=== PATIENT | male | born 1975 | race Caucasian/White ===

== ENCOUNTER 2019-03-01 20:18 | Inpatient (IN) | payer OTHER ==
[2019-03-01 23:39] VITALS: BMI 21.4
--- NOTE | 2019-03-02 00:38 | HP ---
CIWA Score Nausea/Vomitin-Mild Nausea/No Vomiting Muscle Tremors: 4-Moderate,w/Arms Extend Anxiety: 4-Mod. Anxious/Guarded Agitation: 4-Moderately Restless Paroxysmal Sweats: No Perspiration Orientation: 0-Oriented Tacttile Disturbances: 0-None Auditory Disturbances: 0-None Visual Disturbances: 0-None Headache: 0-None Present CIWA-Ar Total Score: 13 - Admission Criteria OASAS Guidelines: Admission for Medically Managed Detox: Requires at least one of the followin. CIWA greater than 12 2. Seizures within the past 24 hours 3. Delirium tremens within the past 24 hours 4. Hallucinations within the past 24 hours 5. Acute intervention needed for co occurring medical disorder 6. Acute intervention needed for co occurring psychiatric disorder 7. Severe withdrawal that cannot be handled at a lower level of care (continued vomiting, continued diarrhea, abnormal vital signs) requiring intravenous medication and/or fluids 8. Patient presents the following: CIWA greater than 12 Admission Criteria Met: Admission criteria met Admission ROS [facility] Chief Complaint: C/O WITHDRAWAL. SEEKING DETOX. Allergies/Adverse Reactions: Allergies Allergy/AdvReac Type Severity Reaction Status Date / Time No Known Allergies Allergy Unverified 06/26/14 11:12 History of Present Illness: 43 Y.O. MALE WITH HX/O ALCOHOLISM AND HEROIN DEPENDENCE HERE FOR DETOX. HE WAS DC FROM [facility] AND REFERRED HERE AFTER SPENDING 69 DAYS THERE. WHILE THERE CLIENT REPORTS DRINKING LIQUOR APPROX 1 PINT A DAY. HE REPORTS HE HAS NOT HAD HEROIN IN OVER A WEEK. PRESENTS WITH A CIWA OF 13 WITH C/O OF WITHDRAWAL SX'S. HIS LAST DRINK WAS TODAY AFTER BEING RELEASED. DENIES HX/O SZ + BLACKOUTS, DENIES DRUG OVERDOSE. HOMELESS, UNEMPLOYED, COURT MANDATE Exam Limitations: No Limitations - Ebola screening Have you traveled outside of the country in the last 21 days: No (N) Have you had contact with anyone from an Ebola affected area: No Do you have a fever: No - Review of Systems Constitutional: Chills, Loss of Appetite, Malaise, Night Sweats, Changes in sleep EENT: reports: No Symptoms Reported Respiratory: reports: No Symptoms reported Cardiac: reports: No Symptoms Reported GI: reports: Constipated (CHRONIC), Nausea, Poor Appetite, Poor Fluid Intake : reports: No Symptoms Reported Musculoskeletal: reports: Back Pain Integumentary: reports: No Symptoms Reported Neuro: reports: Tingling (SPINE) Endocrine: reports: No Symptoms Reported Hematology: reports: No Symptoms Reported Psychiatric: reports: Orientated x3, Agitated (IRRITABLE), Anxious, Depressed ( DENIES SI) Other Systems: Reviewed and Negative Patient History - Patient Medical History Hx Anemia: No Hx Asthma: No Hx Chronic Obstructive Pulmonary Disease (COPD): No Hx Cancer: No Hx Cardiac Disorders: No Hx Congestive Heart Failure: No Hx Hypertension: No Hx Hypercholesterolemia: No Hx Pacemaker: No HX Cerebrovascular Accident: No Hx Seizures: No Hx Dementia: No Hx Diabetes: No Hx Gastrointestinal Disorders: Yes (GERD, CHRONS) Hx Liver Disease: No Hx Genitourinary Disorders: No Hx Sexually Transmitted Disorders: No Hx Renal Disease (ESRD): No Hx Thyroid Disease: No Hx Human Immunodeficiency Virus (HIV): No Hx Hepatitis C: No Hx Depression: No Hx Suicide Attempt: No Hx Bipolar Disorder: No Hx Schizophrenia: No Other Medical History: DENIES - Patient Surgical History Past Surgical History: Yes Hx Abdominal Surgery: Yes (COLOSTOMY SINCE REVERSED) Other Surgical History: FX SKULL Anesthesia Reaction: No - PPD History Previous Implant?: Yes Documented Results: Negative w/o proof Implanted On Prior [facility] Admission?: No PPD to be Administered?: Yes - Smoking Cessation Smoking history: Former smoker (LAST USE 20 DAYS AGO) Have you smoked in the past 12 months: Yes Aproximately how many cigarettes per day: 4 Cigars Per Day: 0 Hx Chewing Tobacco Use: No Initiated information on smoking cessation: Yes 'Breaking Loose' booklet given: 03/02/19 - Substance & Tx. History Hx Alcohol Use: Yes Hx Substance Use: Yes Substance Use Type: Alcohol, Cocaine, Heroin, Marijuana, Tranquilizers Hx Substance Use Treatment: Yes ([facility]) - Substances abused Heroin Substance route: Inhalation Frequency: Daily Amount used: 8 to bags Age of first use: 32 Date of last use: 02/20/19 Cocaine Substance route: Inhalation Frequency: 1-2 times per week Amount used: 20 dollars Age of first use: 39 Date of last use: 02/26/19 Alcohol Substance route: Oral Frequency: Daily Amount used: 1 pint Age of first use: 14 Date of last use: 03/01/19 Alprazolam (Xanax) Substance route: Oral Frequency: 1-2 times per week Amount used: 12 MG Age of first use: 42 Date of last use: 02/27/19 Family Disease History - Family Disease History Family History: Denies Admission Physical Exam [facility] - Vital Signs Vital Signs: Vital Signs - 24 hr 03/01/19 23:27 Temperature 97.9 F Pulse Rate 100 H Respiratory 18 Rate Blood Pressure 98/65 - Physical General Appearance: Yes: Moderate Distress, Alcohol on Breath, Tremorous (felt) , Irritable HEENTM: Yes: EOMI, Normocephalic, SHANNEN, Pharynx Normal Respiratory: Yes: Chest Non-Tender, Lungs Clear, Normal Breath Sounds, No Respiratory Distress, No Accessory Muscle Use Neck: Yes: No masses,lesions,Nodules, Supple, Trachea in good position Breast: Yes: Breast Exam Deferred Cardiology: Yes: Regular Rhythm, Regular Rate, S1, S2 Abdominal: Yes: Non Tender, Soft, Increased Bowel Sounds, Surgical Scar Genitourinary: Yes: Within Normal Limits Back: Yes: Normal Inspection Musculoskeletal: Yes: full range of Motion, Gait Steady Extremities: Yes: Normal Capillary Refill, Normal Range of Motion, Non-Tender, Tremors (felt) Neurological: Yes: Fully Oriented, Alert, Motor Strength 5/5, Depressed Affect ( denies si) Integumentary: Yes: Dry, Warm Lymphatic: Yes: Within Normal Limits - Diagnostic (1) Alcohol dependence with uncomplicated withdrawal Current Visit: Yes Status: Acute (2) Cocaine dependence, uncomplicated Current Visit: Yes Status: Acute (3) Sedative, hypnotic or anxiolytic dependence with withdrawal, uncomplicated Current Visit: Yes Status: Acute (4) Cannabis dependence, uncomplicated Current Visit: Yes Status: Acute (5) Substance induced mood disorder Current Visit: Yes Status: Suspected (6) Homeless Current Visit: Yes Status: Suspected (7) GERD (gastroesophageal reflux disease) Current Visit: Yes Status: Chronic Qualifiers: Esophagitis presence: esophagitis presence not specified Qualified Code(s) : K21.9 - Gastro-esophageal reflux disease without esophagitis (8) Crohn disease Current Visit: Yes Status: Chronic (9) Nicotine dependence Current Visit: Yes Status: Chronic Cleared for Admission [facility] - Detox or Rehab [facility] Level of Care: Medically Managed Detox Regimen/Protocol: Librium Claeared for Rehab Admission: No Urine Drug Screen - Control Is test valid?: Yes - Results Drug screen NEGATIVE: No Urine drug screen results: UMESH-Cocaine, BZO-Benzodiazepines Inpatient Rehab Admission - Rehab Decision to Admit Inpatient rehab admission?: No
[2019-03-02] MEDS ORDERED: MAGNESIUM HYDROX 2400MG/30ML ORAL SUSPENSION 30 ML CUP PO PRN (00:47)
[2019-03-02] MEDS ORDERED: NICOTINE POLACRILEX 2 MG GUM BUC PRN (00:47)
[2019-03-02] MEDS ORDERED: P-EPHED 60MG/TRIPROLIDI 2.5MG TABLET PO PRN (00:47)
[2019-03-02] MEDS ORDERED: hydrOXYzine PAMOATE 25 MG CAPSULE (FP) PO PRN (00:47)
[2019-03-02] MEDS ORDERED: BISMUTH SUBSALICYLATE 524 MG/30 ML UD PO PRN (00:47)
[2019-03-02] MEDS ORDERED: MELATONIN 5 MG TABLETS PO PRN (00:47)
[2019-03-02] MEDS ORDERED: ONDANSETRON *ODT* 4 MG TABLET SL PRN (00:47)
[2019-03-02] MEDS ORDERED: MAGNESIUM CITRATE 300 ML BOTTLE PO PRN (00:47)
[2019-03-02] MEDS ORDERED: DICYCLOMINE HCL 10 MG CAPSULE PO PRN (00:47)
[2019-03-02] MEDS ORDERED: MENTHOL/PHENOL 1 EACH UD MM PRN (00:47)
[2019-03-02] MEDS ORDERED: guaiFENesin 200 MG/10 ML 10 ML UNIT-DOSE CUPS PO PRN (00:47)
[2019-03-02] MEDS ORDERED: chlordiazePOXIDE HCL 10 MG CAPSULE PO PRN (00:47)
[2019-03-02] MEDS ORDERED: METHOCARBAMOL 500 MG TABLET PO PRN (00:47)
[2019-03-02] MEDS ORDERED: IBUPROFEN 400 MG TABLET (FP) PO PRN (00:47)
[2019-03-02] MEDS ORDERED: MAG HYDROX/AL HYDROX/SIMETH 30 ML UNIT-DOSE CUP PO PRN (00:47)
[2019-03-02] MEDS ORDERED: ACETAMINOPHEN 325 MG TABLET (FP) PO PRN ×2 (00:47)
[2019-03-02] MEDS: chlordiazePOXIDE HCL 25 MG CAPSULE PO SCH ×3 (05:26→21:46)
--- NOTE | 2019-03-02 08:04 | EKG ---
Test Reason : Blood Pressure : / mmHG Vent. Rate : 084 BPM Atrial Rate : 084 BPM P-R Int : 142 ms QRS Dur : 094 ms QT Int : 382 ms P-R-T Axes : 061 071 053 degrees QTc Int : 451 ms NORMAL SINUS RHYTHM NORMAL ECG NO PREVIOUS ECGS AVAILABLE Confirmed by PALLAVI ESPINOZA, NORA ([id number]) on 03/02/2019 8:04:27 AM Referred By: Darwin Soto Confirmed By:NORA OLIVO MD
[2019-03-02] MEDS: PRENATAL VITAMINS W/ FOLIC ACID TABLET (FP) PO SCH (10:04)
[2019-03-02 10:05] LABS: HEMATOCRIT 36.6 % (35.4-49); HEMOGLOBIN 12.5 GM/dL (11.7-16.9); MCH 25.3 pg (25.7-33.7); MCHC 34.2 g/dl (32.0-35.9); MEAN PLT VOLUME 6.7 fl (7.5-11.1); PLATELET COUNT 499 K/MM3 (134-434); RBC 4.94 M/mm3 (4.00-5.60); WHITE BLOOD COUNT 8.6 K/mm3 (4.0-10.0)
[2019-03-02 10:07] LABS: ALBUMIN 2.5 g/dl (3.4-5.0); BILIRUBIN,TOTAL 0.2 mg/dL (0.2-1); BLOOD UREA NITROGEN 11.6 mg/dL (7-18); CALCIUM 8.4 mg/dL (8.5-10.1); CREATININE 0.9 mg/dL (0.55-1.3); POTASSIUM 4.8 mmol/L (3.5-5.1); TOT PROT 6.9 g/dl (6.4-8.2)
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
--- NOTE | 2019-03-02 11:40 | PN ---
S CIWA - CIWA Score Nausea/Vomitin-Mild Nausea/No Vomiting Muscle Tremors: 3 Anxiety: 3 Agitation: 2 Paroxysmal Sweats: 3 Orientation: 0-Oriented Tacttile Disturbances: 0-None Auditory Disturbances: 0-None Visual Disturbances: 0-None Headache: 0-None Present CIWA-Ar Total Score: 12 S Progress Note (SOAP) Subjective: low back pain sweats chills nausea Objective: 03/02/19 11:39 Vital Signs Temperature 98.1 F 03/02/19 10:00 Pulse Rate 88 03/02/19 10:00 Respiratory Rate 18 03/02/19 10:00 Blood Pressure 115/62 03/02/19 10:00 O2 Sat by Pulse Oximetry (%) Laboratory Tests 03/02/19 03/02/19 07:00 07:00 WBC 8.6 RBC 4.94 Hgb 12.5 Hct 36.6 MCV 74.0 L MCH 25.3 L MCHC 34.2 RDW 17.0 H Plt Count 499 H MPV 6.7 L Sodium 143 Potassium 4.8 Chloride 110 H Carbon Dioxide 28 Anion Gap 5 L BUN 11.6 Creatinine 0.9 Est GFR (CKD-EPI)AfAm 119.97 Est GFR (CKD-EPI)NonAf 103.51 Random Glucose 93 Calcium 8.4 L Total Bilirubin 0.2 AST 15 ALT 22 Alkaline Phosphatase 98 Total Protein 6.9 Albumin 2.5 L labs noted will repeat cbc aaox3 ambulating no acute distress Assessment: 03/02/19 11:39 withdrawal sx Plan: continue detox increase fluids lidocaine patch ordered motrin prn zofran prn
[2019-03-02] MEDS: LIDOCAINE 5% TOPICAL PATCH TP SCH (14:11)
[2019-03-02 20:49] LABS: PH,URINE 6.5 (5.0-8.0); URINE APPEARANCE CLEAR; URINE BILIRUBIN NEGATIVE (NEGATIVE); URINE COLOR YELLOW; URINE GLUCOSE (UA) NEGATIVE (NEGATIVE); URINE KETONE NEGATIVE (NEGATIVE); URINE LEUK ESTERASE NEGATIVE (NEGATIVE); URINE NITRITE NEGATIVE (NEGATIVE); URINE PROTEIN NEGATIVE (NEGATIVE); URINE UROBILINOGEN 0.2 mg/dL (0.2-1.0)
[2019-03-02] MEDS: MELATONIN 5 MG TABLETS PO PRN (21:47)
[2019-03-02] MEDS: LIDOCAINE PATCH REMOVAL MC SCH (21:48)
[2019-03-02] MEDS: THIAMINE HCL 100 MG TABLET (FP) PO SCH (21:50)
[2019-03-03] MEDS: chlordiazePOXIDE 5 MG CAPSULE PO SCH ×3 (06:21→21:54)
--- NOTE | 2019-03-03 10:35 | PN ---
S CIWA - CIWA Score Nausea/Vomitin-Mild Nausea/No Vomiting Muscle Tremors: 2 Anxiety: 2 Agitation: 2 Paroxysmal Sweats: 1-Minimal Palms Moist Orientation: 0-Oriented Tacttile Disturbances: 0-None Auditory Disturbances: 0-None Visual Disturbances: 0-None Headache: 0-None Present CIWA-Ar Total Score: 8 BHS Progress Note (SOAP) Subjective: nausea anxiety Objective: 03/03/19 10:34 Vital Signs Temperature 97.3 F L 03/03/19 09:23 Pulse Rate 94 H 03/03/19 09:23 Respiratory Rate 18 03/03/19 09:23 Blood Pressure 117/59 L 03/03/19 09:23 O2 Sat by Pulse Oximetry (%) Laboratory Tests 03/02/19 03/02/19 03/02/19 07:00 07:00 07:00 WBC 8.6 RBC 4.94 Hgb 12.5 Hct 36.6 MCV 74.0 L MCH 25.3 L MCHC 34.2 RDW 17.0 H Plt Count 499 H MPV 6.7 L Sodium 143 Potassium 4.8 Chloride 110 H Carbon Dioxide 28 Anion Gap 5 L BUN 11.6 Creatinine 0.9 Est GFR (CKD-EPI)AfAm 119.97 Est GFR (CKD-EPI)NonAf 103.51 Random Glucose 93 Calcium 8.4 L Total Bilirubin 0.2 AST 15 ALT 22 Alkaline Phosphatase 98 Total Protein 6.9 Albumin 2.5 L Urine Color Urine Appearance Urine pH Ur Specific [place] Urine Protein Urine Glucose (UA) Urine Ketones Urine Blood Urine Nitrite Urine Bilirubin Urine Urobilinogen Ur Leukocyte Esterase RPR Titer Nonreactive 03/02/19 11:40 WBC RBC Hgb Hct MCV MCH MCHC RDW Plt Count MPV Sodium Potassium Chloride Carbon Dioxide Anion Gap BUN Creatinine Est GFR (CKD-EPI)AfAm Est GFR (CKD-EPI)NonAf Random Glucose Calcium Total Bilirubin AST ALT Alkaline Phosphatase Total Protein Albumin Urine Color Yellow Urine Appearance Clear Urine pH 6.5 Ur Specific [place] 1.024 Urine Protein Negative Urine Glucose (UA) Negative Urine Ketones Negative Urine Blood Negative Urine Nitrite Negative Urine Bilirubin Negative Urine Urobilinogen 0.2 Ur Leukocyte Esterase Negative RPR Titer repeated labs pending aaox3 ambulating Assessment: 03/03/19 11:07 mild withdrawal sx Plan: continue detox increase fluids zofran prn
[2019-03-03] MEDS: LIDOCAINE 5% TOPICAL PATCH TP SCH (10:49)
[2019-03-03] MEDS: PRENATAL VITAMINS W/ FOLIC ACID TABLET (FP) PO SCH (10:49)
[2019-03-03 15:12] LABS: BASO % 0.5 % (0-2.0); EOS % 4.1 % (0-4.5); HEMATOCRIT 40.3 % (35.4-49); LYMPH % 16.4 % (8-40); MCH 24.5 pg (25.7-33.7); MCHC 32.1 g/dl (32.0-35.9); MEAN CELL VOLUME 76.2 fl (80-96); MEAN PLT VOLUME 6.9 fl (7.5-11.1); MONO % 5.3 % (3.8-10.2); NEUT % 73.7 % (42.8-82.8); PLATELET COUNT 495 K/MM3 (134-434); RBC 5.29 M/mm3 (4.00-5.60); RDW 16.8 % (11.9-15.9)
[2019-03-03] MEDS: THIAMINE HCL 100 MG TABLET (FP) PO SCH (21:54)
[2019-03-03] MEDS: MELATONIN 5 MG TABLETS PO PRN (21:54)
[2019-03-03] MEDS: LIDOCAINE PATCH REMOVAL MC SCH (22:00)
[2019-03-04] MEDS ORDERED: chlordiazePOXIDE HCL 10 MG CAPSULE PO SCH (05:00)
[2019-03-04] MEDS ORDERED: chlordiazePOXIDE HCL 10 MG CAPSULE PO PRN (05:00)
--- NOTE | 2019-03-04 09:09 | DS ---
[facility] Detox Discharge Summary Admission Date: 03/01/19 Discharge Date: 03/04/19 - History Present History: Alcohol Dependence, Cannabis Dependence, Opioid Dependence - Physical Exam Results Vital Signs: Vital Signs Temperature 97.9 F 03/04/19 06:52 Pulse Rate 77 03/04/19 06:52 Respiratory Rate 18 03/04/19 06:52 Blood Pressure 111/65 03/04/19 06:52 O2 Sat by Pulse Oximetry (%) - Treatment Hospital Course: Detox Protocol Followed, Detoxed Safely, Responded well, Discharged Condition Good, Rehab Referral Accepted - Medication Discharge Medications: Ambulatory Orders NK [No Known Home Medication] 03/01/19 - Diagnosis (1) Alcohol dependence with uncomplicated withdrawal Current Visit: Yes Status: Chronic (2) Cannabis dependence, uncomplicated Current Visit: Yes Status: Chronic (3) Cocaine dependence, uncomplicated Current Visit: Yes Status: Chronic (4) Opioid dependence, uncomplicated Current Visit: Yes Status: Chronic (5) Sedative, hypnotic or anxiolytic dependence with withdrawal, uncomplicated Current Visit: Yes Status: Chronic (6) Substance induced mood disorder Current Visit: Yes Status: Acute (7) Substance-induced sleep disorder Current Visit: Yes Status: Acute (8) Crohn disease Current Visit: Yes Status: Chronic (9) GERD (gastroesophageal reflux disease) Current Visit: Yes Status: Chronic Qualifiers: Esophagitis presence: without esophagitis Qualified Code(s): K21.9 - Gastro -esophageal reflux disease without esophagitis (10) Nicotine dependence Current Visit: Yes Status: Chronic Qualifiers: Nicotine product type: cigarettes Substance use status: uncomplicated Qualified Code(s): F17.210 - Nicotine dependence, cigarettes, uncomplicated (11) Substance induced mood disorder Current Visit: Yes Status: Suspected - AMA Did Patient Leave Against Medical Advice: No (referred to tonio ATC)
[2019-03-04 09:34] VITALS: BP 116/69; PULSE 87; TEMP 97.3
== END 2019-03-04 11:49 | disposition home or self-care (01) | DRG 773 ==
LOC: YASAS 20:18 → Y6N 23:53
PROVIDERS: ADMIT Surgery; ATTEND Surgery
PROC: HZ2ZZZZ Detoxification Services for Substance Abuse Treatment (ICD-10-PCS; principal; 2019-03-01)
DX: F11.23 Opioid dependence with withdrawal (principal); F10.230 Alcohol dependence with withdrawal, uncomplicated; F13.230 Sedative, hypnotic or anxiolytic dependence with withdrawal, uncomplicated; F14.20 Cocaine dependence, uncomplicated; F12.20 Cannabis dependence, uncomplicated; F17.210 Nicotine dependence, cigarettes, uncomplicated; F19.24 Other psychoactive substance dependence with psychoactive substance-induced mood disorder; F19.282 Other psychoactive substance dependence with psychoactive substance-induced sleep disorder; K21.9 Gastro-esophageal reflux disease without esophagitis; K50.90 Crohn's disease, unspecified, without complications
CPT/HCPCS: 36415; 80053; 81003; 85025; 85027; 86593; 93005; 93010

== ENCOUNTER 2024-09-13 12:08 | Inpatient (IN) | payer BC ==
[2024-09-13] MEDS ORDERED: IBUPROFEN 400 MG TABLET (FP) PO PRN (12:22)
[2024-09-13] MEDS ORDERED: ONDANSETRON *ODT* 4 MG TABLET SL PRN (12:22)
[2024-09-13] MEDS ORDERED: LOPERAMIDE HCL 2 MG CAPSULE PO PRN (12:22)
[2024-09-13] MEDS ORDERED: NALOXONE (NARCAN) HCL 4 MG/0.1 ML SPRAY NS PRN (12:22)
[2024-09-13] MEDS ORDERED: MAG HYDROX/AL HYDROX/SIMETH 30 ML UNIT-DOSE CUP PO PRN (12:22)
[2024-09-13] MEDS ORDERED: MAGNESIUM HYDROX 2400MG/30ML ORAL SUSPENSION 30 ML CUP PO PRN (12:22)
[2024-09-13] MEDS ORDERED: hydrOXYzine PAMOATE 25 MG CAPSULE (FP) PO PRN (12:22)
[2024-09-13] MEDS ORDERED: guaiFENesin 600 MG TABLET.ER (FP) PO PRN (12:22)
[2024-09-13] MEDS ORDERED: BISMUTH SUBSALICYLATE 262 MG/15 ML BTL PO PRN (12:22)
[2024-09-13] MEDS ORDERED: NICOTINE POLACRILEX 4 MG GUM BUC PRN (12:22)
[2024-09-13] MEDS ORDERED: BENZOCAINE/MENTHOL (CHLORASEPTIC ) LOZENGE MM PRN (12:22)
[2024-09-13] MEDS ORDERED: BENZONATATE 200 MG CAPSULE PO PRN (12:22)
[2024-09-13] MEDS ORDERED: IBUPROFEN 600 MG TABLET (FP) PO PRN (12:22)
[2024-09-13] MEDS ORDERED: DICYCLOMINE HCL 10 MG CAPSULE PO PRN (12:22)
[2024-09-13] MEDS ORDERED: ACETAMINOPHEN 325 MG TABLET (FP) PO PRN (12:22)
[2024-09-13] MEDS ORDERED: POLYETHYLENE GLYCOL (HEALTHYLAX) 3350 17 GM PACKET PO PRN (12:22)
[2024-09-13] MEDS ORDERED: METHOCARBAMOL 500 MG TABLET PO PRN (12:22)
[2024-09-13 12:27] VITALS: BMI 18.8
[2024-09-13] MEDS: PRENATAL VITAMINS W/ FOLIC ACID TABLET (FP) PO SCH (14:10)
[2024-09-13] MEDS: chlordiazePOXIDE HCL 25 MG CAPSULE PO PRN (14:58)
[2024-09-13 15:03] VITALS: RESP 16
[2024-09-13] MEDS: chlordiazePOXIDE HCL 25 MG CAPSULE PO SCH (17:36)
[2024-09-13] MEDS: THIAMINE 100 MG TABLET PO SCH (22:11)
[2024-09-13] MEDS: MELATONIN 5 MG TABLETS PO SCH (22:11)
[2024-09-14 13:15] VITALS: BP 126/64; PULSE 109; TEMP 97.3
[2024-09-14 14:33] LABS: CHLORIDE 107 mmol/L (98-107); POTASSIUM 4.1 mmol/L (3.5-5.1); SODIUM 138 mmol/L (136-145)
[2024-09-14 14:38] LABS: HEMATOCRIT 40.4 % (35.4-49); HEMOGLOBIN 13.7 GM/dL (11.7-16.9); MCH 26.9 pg (25.7-33.7); MEAN PLT VOLUME 6.8 fl (7.5-11.1); PLATELET COUNT 484 10^3/uL (134-434); RBC 5.12 M/mm3 (4.00-5.60); RDW 15.7 % (11.9-15.9); WHITE BLOOD COUNT 8.8 K/mm3 (4.0-10.0)
[2024-09-14 14:53] LABS: CALCIUM 8.8 mg/dL (8.5-10.1)
[2024-09-14 14:54] LABS: ALBUMIN 2.7 g/dl (3.4-5.0); ANION GAP 5 mmol/L (4-13); BLOOD UREA NITROGEN 11.6 mg/dL (7-18); CO2 26 mmol/L (21-32); GLUCOSE,RANDOM 109 mg/dL (74-106)
[2024-09-14 14:57] LABS: CREATININE 0.7 mg/dL (0.55-1.3); SGOT/AST 22 U/L (15-37); SGPT/ALT 23 U/L (13-61)
[2024-09-14 14:59] LABS: BILIRUBIN,TOTAL 0.6 mg/dL (0.2-1); TOT PROT 7.1 g/dl (6.4-8.2)
[2024-09-14 15:00] LABS: ALK PHOS 125 U/L (45-117)
[2024-09-14] MEDS: NALOXONE (NYS OPIOID OVERDOSE PROGRAM) 4 MG/0.1 ML SPRAY NS SCH (15:55)
[2024-09-15] MEDS ORDERED: chlordiazePOXIDE HCL 25 MG CAPSULE PO SCH (05:00)
[2024-09-16] MEDS ORDERED: chlordiazePOXIDE HCL 10 MG CAPSULE PO PRN
[2024-09-16] MEDS ORDERED: chlordiazePOXIDE HCL 10 MG CAPSULE PO SCH (05:00)
[2024-09-17] MEDS ORDERED: chlordiazePOXIDE HCL 10 MG CAPSULE PO SCH (05:00)
[2024-09-18] MEDS ORDERED: chlordiazePOXIDE HCL 10 MG CAPSULE PO ONE (05:00)
== END 2024-09-14 16:02 | disposition left against medical advice (07) | DRG 770 ==
LOC: YASAS 12:08 → Y6N 14:23
PROVIDERS: ADMIT Allergy & Immunology; ATTEND Allergy & Immunology
PROC: HZ2ZZZZ Detoxification Services for Substance Abuse Treatment (ICD-10-PCS; principal; 2024-09-13)
DX: F10.230 Alcohol dependence with withdrawal, uncomplicated (principal); F14.20 Cocaine dependence, uncomplicated; F12.20 Cannabis dependence, uncomplicated; F17.210 Nicotine dependence, cigarettes, uncomplicated; F19.282 Other psychoactive substance dependence with psychoactive substance-induced sleep disorder; F19.24 Other psychoactive substance dependence with psychoactive substance-induced mood disorder; Z87.19 Personal history of other diseases of the digestive system
CPT/HCPCS: 36415; 80053; 80305; 80307; 85027; 86780; 93005; 93010

== ENCOUNTER 2025-01-11 13:41 | Inpatient (IN) | payer BC ==
[2025-01-11 14:03] VITALS: BMI 20.2
[2025-01-11] MEDS ORDERED: guaiFENesin 600 MG TABLET.ER (FP) PO PRN (14:22)
[2025-01-11] MEDS ORDERED: NALOXONE (NARCAN) HCL 4 MG/0.1 ML SPRAY NS PRN (14:22)
[2025-01-11] MEDS ORDERED: hydrOXYzine PAMOATE 25 MG CAPSULE (FP) PO PRN (14:22)
[2025-01-11] MEDS ORDERED: METHOCARBAMOL 500 MG TABLET PO PRN (14:22)
[2025-01-11] MEDS ORDERED: ONDANSETRON *ODT* 4 MG TABLET SL PRN (14:22)
[2025-01-11] MEDS ORDERED: IBUPROFEN 400 MG TABLET (FP) PO PRN (14:22)
[2025-01-11] MEDS ORDERED: POLYETHYLENE GLYCOL (HEALTHYLAX) 3350 17 GM PACKET PO PRN (14:22)
[2025-01-11] MEDS ORDERED: MAG HYDROX/AL HYDROX/SIMETH 30 ML UNIT-DOSE CUP PO PRN (14:22)
[2025-01-11] MEDS ORDERED: BENZONATATE 200 MG CAPSULE PO PRN (14:22)
[2025-01-11] MEDS ORDERED: BENZOCAINE/MENTHOL (CHLORASEPTIC ) LOZENGE MM PRN (14:22)
[2025-01-11] MEDS ORDERED: DICYCLOMINE HCL 10 MG CAPSULE PO PRN (14:22)
[2025-01-11] MEDS ORDERED: ACETAMINOPHEN 325 MG TABLET (FP) PO PRN (14:22)
[2025-01-11] MEDS ORDERED: MAGNESIUM HYDROX 2400MG/30ML ORAL SUSPENSION 30 ML CUP PO PRN (14:22)
[2025-01-11] MEDS ORDERED: BISMUTH SUBSALICYLATE 262 MG/15 ML BTL PO PRN (14:22)
[2025-01-11] MEDS ORDERED: NICOTINE POLACRILEX 2 MG GUM BUC PRN (14:22)
[2025-01-11] MEDS ORDERED: LOPERAMIDE HCL 2 MG CAPSULE PO PRN (14:22)
[2025-01-11] MEDS: chlordiazePOXIDE HCL 25 MG CAPSULE PO PRN (18:02)
[2025-01-11] MEDS: chlordiazePOXIDE HCL 25 MG CAPSULE PO SCH (18:05)
[2025-01-11] MEDS: CHLORHEXIDINE GLUCONATE 0.12% 15ML CUP MM SCH (18:11)
[2025-01-11] MEDS: NALTREXONE HCL 50 MG TABLET PO ONE ×2 (18:11→18:12)
[2025-01-11] MEDS: IBUPROFEN 600 MG TABLET (FP) PO PRN (20:48)
[2025-01-11] MEDS: THIAMINE 100 MG TABLET PO SCH (22:37)
[2025-01-11] MEDS: MELATONIN 5 MG TABLETS PO SCH (22:37)
[2025-01-11] MEDS: MIRTAZAPINE 15 MG TABLET (FP) PO SCH (22:39)
[2025-01-12] MEDS: NALTREXONE HCL 50 MG TABLET PO SCH (10:26)
[2025-01-12] MEDS: PRENATAL VITAMINS W/ FOLIC ACID TABLET (FP) PO SCH (10:26)
[2025-01-12 11:54] LABS: HEMATOCRIT 32.5 % (40.1-51.0); HEMOGLOBIN 10.4 g/dL (13.7-17.5); MEAN CELL VOLUME 68.9 fl (79.0-92.2); MEAN PLT VOLUME 8.6 fl (9.4-12.4); PLATELET COUNT 540 x10^3/uL (163-337)
[2025-01-12 11:57] LABS: CHLORIDE 112 mmol/L (98-107); POTASSIUM 4.2 mmol/L (3.5-5.1); SODIUM 141 mmol/L (136-145)
[2025-01-12 12:08] LABS: CALCIUM 8.8 mg/dL (8.5-10.1)
[2025-01-12 12:17] LABS: ALBUMIN 2.4 g/dl (3.4-5.0); ANION GAP 4 mmol/L (4-13); BLOOD UREA NITROGEN 13.3 mg/dL (7-18); CO2 26 mmol/L (21-32); GLUCOSE,RANDOM 115 mg/dL (74-106)
[2025-01-12 12:19] LABS: CREATININE 0.6 mg/dL (0.55-1.3)
[2025-01-12 12:21] LABS: BILIRUBIN,TOTAL 0.1 mg/dL (0.2-1); SGOT/AST 17 U/L (15-37); SGPT/ALT 17 U/L (13-61)
[2025-01-12 12:22] LABS: ALK PHOS 115 U/L (45-117); TOT PROT 6.8 g/dl (6.4-8.2)
[2025-01-12 17:50] VITALS: BP 125/78; PULSE 81; RESP 19; TEMP 97.5
[2025-01-13] MEDS ORDERED: chlordiazePOXIDE HCL 25 MG CAPSULE PO SCH (05:00)
[2025-01-14] MEDS ORDERED: chlordiazePOXIDE HCL 10 MG CAPSULE PO PRN
[2025-01-14] MEDS ORDERED: chlordiazePOXIDE HCL 10 MG CAPSULE PO SCH (05:00)
[2025-01-15] MEDS ORDERED: chlordiazePOXIDE HCL 10 MG CAPSULE PO SCH (05:00)
[2025-01-16] MEDS ORDERED: chlordiazePOXIDE HCL 10 MG CAPSULE PO ONE (05:00)
== END 2025-01-12 18:30 | disposition left against medical advice (07) | DRG 770 ==
LOC: YASAS 13:41 → Y6N 15:14
PROVIDERS: ADMIT Allergy & Immunology; ATTEND Allergy & Immunology
PROC: HZ2ZZZZ Detoxification Services for Substance Abuse Treatment (ICD-10-PCS; principal; 2025-01-11)
DX: F10.230 Alcohol dependence with withdrawal, uncomplicated (principal); F14.20 Cocaine dependence, uncomplicated; F12.20 Cannabis dependence, uncomplicated; F17.210 Nicotine dependence, cigarettes, uncomplicated; R68.2 Dry mouth, unspecified; Z87.19 Personal history of other diseases of the digestive system
CPT/HCPCS: 36415; 80053; 80305; 80307; 85027; 86780; 93005; 93010